=== PATIENT | female | born 1980 | race Caucasian/White ===

== ENCOUNTER 2021-04-19 07:05 | Day surgery (SDC) | payer MEDICAID, SELFPAY ==
--- NOTE | 2021-04-06 17:23 | PCM.HP.BLA ---
History and Physical Date of Admission: 04/19/21 Pre-Op History and Physical ? HPI: The patient is a 40 year old female presenting for pre-operative visit. She is scheduled for laparoscopic bilateral salpingectomy, for sterilization on 04/19/21. Procedure discussed along with risks, benefits and complications. Other alternatives discussed for management. Consent form signed? Yes. ? ? PAST MEDICAL HISTORY PAST MEDICAL HISTORY Diagnosis Date ? Diabetes, gestational ? ? Heart murmur ? ? went away after ? ? PAST SURGICAL HISTORY PAST SURGICAL HISTORY Procedure Laterality Date ? DELIVERY ONLY ? 02/06/15 ? , low transverse ? SECTION HX ? ? ? x2 ? ? ? CURRENT MEDICATIONS Current Outpatient Medications Medication Sig Dispense Refill ? miSOPROStol (CYTOTEC) 200 mcg tablet Use 4 tablets vaginally as directed. place 4 tabs vaginally 4 tablet 0 ? Ulxugiud-Hb-Uzr-Fe-FA ( VITAMIN) tab Take 1 tablet by mouth. ? ? ? No current facility-administered medications for this visit. ? ? ALLERGIES: Penicillin G ? PERSONAL HISTORY: SOCIAL HISTORY Social History ? Tobacco Use ? Smoking status: Former Smoker ? ? Years: 1.00 ? ? Quit date: 02/19/2001 ? ? Years since quittin.1 ? Smokeless tobacco: Never Used Vaping Use ? Vaping Use: Never used Substance Use Topics ? Alcohol use: Not Currently ? ? Comment: occasional ? Drug use: No ? FAMILY HISTORY: FAMILY HISTORY FAMILY HISTORY Problem Relation Age of Onset ? Skin Cancer Mother ? ? Arthritis Mother ? ? Arthritis Father ? ? Hypertension Father ? ? Diabetes Father ? ? No Known Problems Sister ? ? Systemic Lupus Erythematosus Sister ? ? Human Immunodeficiency Virus Brother ? ? Kidney stones Brother ? ? Alcohol abuse Maternal Grandmother ? ? Heart Maternal Grandfather ? ? Alcohol abuse Maternal Grandfather ? ? Diabetes Paternal Grandmother ? ? Heart Paternal Grandfather ? ? No Known Problems Daughter ? ? No Known Problems Daughter ? ? No Known Problems Son ? ? No Known Problems Son ? ? ? REVIEW OF SYMPTOMS: GENERAL: denies fevers or chills ENDOCRINOLOGY: has not been on steroids Cardiology : denies palpitations or chest pain Respiratory: denies SOB or cough Hematology: denies history of prolonged bleeding or easy bruising or VTE Allergy: Denies history of personal or family history of allergy to anesthesia ? PHYSICAL EXAMINATION: ? VITALS: Last menstrual period 01/02/2021, unknown if currently . ? GENERAL: The patient is well nourished, well hydrated in no acute distress. , The patient is oriented to time, place, and person. NECK: Supple. No lynphadenopathy, normal thyroid, no thyromegaly. LUNGS: Clear to auscultation bilaterally. no wheezes, rhonchi or rales HEART: Regular rate and rhythm, Normal heart sounds and No murmurs or gallops ? IMPRESSION: Sterilization request ? PLAN: The risks/benefits/alternatives and personal involved for the planned laparoscopic bilateral salpingectomy were reviewed with the patient. Her questions were answered to her satisfaction and she desires to proceed. Consent was signed. I reviewed with her postop instructions and expectations. ? ? I have reviewed and updated past medical and surgical history, medications and allergies This H&P was completed in my office on 04-06-21. Assessment & Plan Assessment/Plan (1) Sterilization:
[2021-04-18 10:24] LABS: Hematocrit 39.6 % (37-47); Hemoglobin 12.5 g/dL (12.0-15.0); Mean Corp Hgb Conc 31.6 g/dL (32-36); Mean Corpuscular Hgb 26.5 pg (27.0-32.0); Mean Corpuscular Volume 84.1 fL (81-99); Mean Platelet Vol. 12.2 fl (6.2-12.0); Platelet Count 276 K/mm3 (150-450); RBC Distribution Width CV 12.6 % (11.6-14.6); RBC Distribution Width SD 38.6 fl (35.1-43.9); Red Blood Count 4.71 M/mm3 (4.2-5.4)
[2021-04-19] VITALS (7 sets, daily range): BP systolic 90–121; BP diastolic 72–85; PULSE 47–73; RESP 16–100; TEMP 36.1–37; O2SAT 16–100
[2021-04-19] MEDS: Acetaminophen 500 MG Tablet 1000 MG PO (07:00)
[2021-04-19] MEDS: Celecoxib 200 MG Capsule 400 MG PO (07:00)
[2021-04-19] MEDS: Lactated Ringers 1,000 ML 15 ML IV (07:05)
[2021-04-19 07:28] LABS: Internal QC Validated? YES +Cl - CLEAR BKGD; Pregnancy, Urine Negative Negative
--- NOTE | 2021-04-19 08:40 | FALS_PTH ---
PATIENT: MANA GREGORY LOC: [facility] [place] U#:[id number] AGE/SX: 40/F ROOM: RE04/19/[address]: Dr. Dena Dueñas MD : 1980 BED: DIS: 04/19/2021 SPEC #: [id number] RECD: 04/19/21 11:26 STATUS: JEFFREY REAlen #: [id number] MARIPOSA: 04/19/21 08:[address]: Dena Dueñas DEPT: SURGICAL PATHOLOGY RECD BY: Gini Medellin ENTERED: 04/19/21 12:46 SP TYPE: FALL TUBES OTHR DR: No Primary Care Phys Tissues: Fallopian tube Procedures: Surgery Specimen Level II HEADER OPERATION: Laparoscopic salpingectomy PRE-OP DIAGNOSIS: Sterilization TISSUE SUBMITTED: Bilateral fallopian tubes MICROSCOPIC DIAGNOSIS Bilateral fallopian tubes, salpingectomy: Bilateral fallopian tubes, no pathologic diagnosis. SHANKAR:stu 04/20/2021 MICROSCOPIC DESCRIPTION Slides are reviewed. GROSS DESCRIPTION Received in fixative is one container labeled with the patient's name and designated bilateral fallopian tubes. The specimen consists of bilateral fallopian tubes including fimbrial ends measuring 5.5 cm in length and 0.5 cm in diameter and 4.5 cm in length and 0.5 cm in diameter. The fallopian tubes are not identified as right or left. Sections reveal unremarkable cut surfaces. Sewer Cleaner sections are submitted in two cassettes with each cassette containing one fallopian tube. / SJ:stu 04/19/21 TC:4 CPT: 75200 x2
--- NOTE | 2021-04-19 08:56 | PCM.DC ---
Discharge Instructions Diet Discharge Diet: No restrictions (Increase fluid intake for the next 48 hours.) Activity Additional Activity Instructions:: Ambulate often the next week after surgery. Nothing in the vagina for 5 days. Take ibuprofen, acetaminophen and use heat to your abdomen as needed for pain control Dressing / Incision Call your doctor if your incision/area has: Continuous Slow Oozing, Sudden Increased Bleeding, Increased Pain/ Swelling, Increased Redness and Foul Smelling Discharge Call your doctor if you observe: Fever of 101 or Higher Cleanse incision/area with: Soap & Water Additional Dressing/Incision Instructions:: your incisions have skin glue, it can get wet. Leave it on for at least 10 days Follow Up Care Please Follow Up With: Dena Dueñas MD When: Call [phone] for follow-up appointment. Test Results: Test results from this visit will be discussed in further detail at your follow-up appointment, if applicable. Discharge Plan Admission Primary Reason for Your Visit: Tubal ligation Attending Provider: Dena Dueñas Primary Care Provider: Care Physician,Cyndie Primary Discharge Orders/Prescriptions Prescriptions: Continued multivitamin Capsule 1 cap PO DAILY RF: 0 Referrals / Follow Up: Care Physician,No Primary [Primary Care Provider] - Disposition Disposition (needs filled in before D/C Order can be placed): Home, Self Care
[2021-04-19] MEDS: Bupivacaine Mpf 0.5% 30 ML VIAL (09:07)
[2021-04-19] MEDS: Lubricating Jelly 60 GM Tube 30 GM TOPICAL (09:07)
--- NOTE | 2021-04-19 09:49 | OP.PCM_ITS ---
Problems Associated Problem List Diagnoses (1) Sterilization: Report of Operation Date of Procedure: 04/19/21 Pre-Operative Diagnosis: Sterilization request Post-Operative Diagnosis: same Surgery/Procedure Performed:: Laparoscopic bilateral salpingectomy Description of Surgical Findings:: Normal uterus tubes and ovaries, normal cervix and vagina Surgeon: Dena Dueñas cashier receptionist: None cashier receptionist: Marylou Short Type of Anesthesia: General Anesthesiologist: Justice Garsia Special Medications: none Specimen's removed: bilateral fallopian tubes Drains: none Estimated Blood Loss (mL): 10 Fluids Replaced: 700 Description of Procedure: The patient was taken to the operating room where she was prepped and draped in the dorsolithotomy position. A weighted speculum was placed in the vagina and the anterior lip of the cervix was grasped with a tenaculum. The Janice uterine manipulator was placed and the remainder of the instruments were removed from the vagina. Attention was turned to the abdomen. All port sites were infiltrated with 0.5% Marcaine before skin incisions were made. A 5 mm [intraumbilical] incision was made. The anterior abdominal wall was tented up with 2 towel clamps while a 5 mm blade less trocar and sleeve were [directly inserted]. Intraperitoneal plac ement was confirmed with the laparoscope. The pneumoperitoneum was created and the underlying abdominal contents were intact. The patient was placed in Trendelenburg. Right and left lower quadrant ports were placed under direct visualization lateral to the inferior epigastric vessels. The bowel was swept away and the above findings were noted. The LigaSure device was used to clamp seal and transect the antimesenteric portions of the right tube to the cornual insertion of the uterus. The tube was amputated from the uterus and the pedicles were all confirmed to be hemostatic. The same procedure was performed on the contralateral side. The specimens were brought out through a 5 mm port. The pedicles were again examined and found to be hemostatic. The lateral ports were removed under direct visualization and no active bleeding was noted. The pneumoperitoneum was released. The skin incisions were closed with Monocryl suture in a subcuticular fashion and skin glue by the [employer]. The vaginal instruments were removed and the vaginal sweep was completed by me. The procedure was performed by me with assistance other than as dictated above. All sponge and needle counts were correct and the patient was taken to the recovery room in stable condition. Grafts/Implants Used: none Procedure Start Time: 09:07 Procedure Stop Time: 09:18 Complications none Admit VTE Documentation VTE Present on Admission: No VTE Mechan Device Prophylaxis: SCD's VTE Pharm Prophylaxis ordered?: No Reason prophylaxis not ordered:: Procedure Not Indicated
[2021-04-19] MEDS: Lactated Ringers 1,000 ML 75 ML IV (09:56)
== END 2021-04-19 11:40 | disposition home or self-care (01) ==
LOC: SDC 07:06 → AC 07:06
PROVIDERS: Referring Provider Obstetrics & Gynecology; Visit Provider Obstetrics & Gynecology
PROC: (CPT 58661; principal; 2021-04-19 08:25)
DX: Z30.2 Encounter for sterilization (principal); Z20.822 Contact with and (suspected) exposure to COVID-19; Z87.891 Personal history of nicotine dependence
CPT/HCPCS: 00840; 58661; 36415; 81025; 85027; 87426; 88302; C9803; J7120; C1760; J2405